=== PATIENT | female | born 1945 | race Caucasian/White ===

== ENCOUNTER → 2018-07-09 14:31 | Outpatient (CLI) | payer MEDICARE, SELFPAY ==
--- NOTE | 2018-07-09 | DI.MG.S_ITS ---
BILATERAL DIGITAL SCREENING MAMMOGRAM 3D/2D WITH CAD: 07/09/2018 CLINICAL: Routine screening. Comparison is made to exams dated: 06/04/2017 mammogram, 03/06/2016 mammogram, and 10/12/2014 mammogram - [facility]. There are scattered fibroglandular elements in both breasts. Current study was also evaluated with a Computer Aided Detection (CAD) system. There are mole markers on the right breast. There is a mole marker on the left breast. No significant masses, calcifications, or other findings are seen in either breast. There has been no significant interval change. IMPRESSION: NEGATIVE There is no mammographic evidence of malignancy. A 1 year screening mammogram is recommended. This exam was interpreted at Station ID: [id number]. NOTE: For mammograms, a report in lay terms will be sent to the patient. Approximately 15% of breast malignancies will not be visualized mammographically. In the management of a palpable breast mass, a negative mammogram must not discourage biopsy of a clinically suspicious lesion. Electronically Signed By: Vik foster/adriana:07/09/2018 20:42:39 letter sent: Normal Exam ACR BI-RADS Category 1: Negative 3341F
== END ==
PROVIDERS: PCP Family Medicine; Visit Provider Nurse Practitioner Family
DX: Z12.31 Encounter for screening mammogram for malignant neoplasm of breast (principal)
CPT/HCPCS: 77063; 77067

== ENCOUNTER 2019-06-23 08:41 | Day surgery (SDC) | payer MEDICARE, OTHER, SELFPAY ==
--- NOTE | 2019-06-23 | PATH_ITS ---
[facility] Accession Number: [id number] . 01 Material submitted: . colon - POLYPS ASCENDING COLON . 02 Diagnosis: Ascending Colon, Polyps: Fragments of tubular adenoma. V 06/24/2019 1012 Local . 02 Electronically signed: . Neal Toribio MD, PhD, Pathologist NPI- [id number] . 01 Gross description: . POLYPS ASCENDING COLON: Received in formalin are 3 fragment(s) of mariscal, soft tissue measuring 0.1 x 0.1 x 0.1 cm to 0.3 x 0.3 x 0.2 cm submitted entirely in 1 cassette(s) [place] [place]23[place] 1841 Local . 02 Pathologist provided ICD-10: D12.2 . 02 CPT . 710497 Performed at: 01 [facility] [address] [id number] MD Alin Malcolm MD Phone: [phone] Performed at: [address] [facility] [address] [place], [place] [id number] MD Erin Meyer MD Phone: [phone]
[2019-06-23] MEDS: SODIUM CHLORIDE 0.9% 1,000 ML 200 ML IV (09:04)
[2019-06-23 09:17] VITALS: BP 122/65; PULSE 64; RESP 14; TEMP 36.7; O2SAT 98; BMI 26.4
--- NOTE | 2019-06-23 09:53 | PM.HP.1 ---
History of Present Illness History of Present Illness Date Patient Seen: 06/23/19 Time Patient Seen: 09:53 Chief complaint: [id number] SCREENING COLONOSCOPY Narrative: The patient is a woman who had a last colonoscopy 5 years ago. She has had polyps removed in the past. No family history of colon cancer. Patient History Medical History (Updated 06/23/19 @ 09:53 by Isaak Obrien MD) Acquired hypothyroidism (02/02/15) Essential hypertension (02/02/15) Surgical History History of tonsillectomy Status post dilation and curettage Status post surgery (11/12/12) Family & Social History Family History Brother Diabetes mellitus Father Heart disease Social History: household members spouse Tobacco & Substance use: Smoking Status Never smoker alcohol intake current alcohol intake frequency a few times a week Substance Use Type does not use Meds Home Medications and Allergies Home Medications Medication Instructions Recorded Confirmed Type CHOLECALCIFEROL (VITAMIN D3) 2,000 iu PO Q DAY #0 10/07/10 History (Vitamin D) MULTIVITAMIN (Multiple Vitamins 1 tab PO Q DAY #0 10/09/10 History Daily) glucosamine sulfate [Genicin] 1,000 mg PO QDAY #0 11/22/15 History Fish Oil 3,000 mg PO QDAY #0 02/06/16 History Sodium Fluoride 5000 Plus 0.11 #0 07/15/16 History atenolol 25 mg PO BID #180 tab 07/15/16 06/23/19 Rx levothyroxine [Synthroid] 75 mcg PO QAM #90 tab 07/15/16 06/23/19 Rx atorvastatin [Lipitor] 20 mg PO HS #90 tab 10/27/16 06/23/19 Rx Allergies Allergy/AdvReac Type Severity Reaction Status Date / Time aspirin [ASPIRIN] Allergy Mild ACID Verified 06/23/19 09:05 REFLUX TO JAWLINE Review of Systems Review of Systems ROS: Yes All systems reviewed with the patient and are negative except as otherwise documented Cardiovascular Comments: History of hypertension on medication Exam Vital Signs (past 8 hours): - 06/23/19 09:17 Temperature 98.1 F Pulse Rate 64 Respiratory Rate 14 Blood Pressure 122/65 Pulse Oximetry 98 Oxygen Delivery Method Room Air Narrative Exam Narrative: Pleasant cooperative patient no apparent distress. Lungs are clear to auscultation. No rales or rhonchi. Heart regular rate and rhythm no murmur gallop. Abdomen is soft nontender without mass. No obvious hernias. Patient is alert and oriented x3. Assessment & Plan Assessment & Plan narrative: The patient for a screening colonoscopy. I have discussed the procedure with them. Risks of bleeding, perforation which would necessitate major operation, failure to find remove all lesions, the potential tattoo were all discussed. All questions were answered. They wished to proceed.
--- NOTE | 2019-06-23 09:54 | PM.PREOP ---
Pre-operative Note Interval Note History & Physical reviewed/Exam performed by Physician: Yes Changes to H&P: No ASA Class (for procedural sedation): II
[2019-06-23] MEDS: fentaNYL 250 MCG/5 ML INJ IV (09:57)
[2019-06-23] MEDS: MIDAZOLAM 5 MG/5 ML VIAL IV (09:57)
--- NOTE | 2019-06-23 10:16 | SUR.OPER ---
GLASSES IN LABELED BAG TO PACU WITH PATIENT.
[2019-06-23 10:26] VITALS: BP 106/47; PULSE 66; RESP 16; TEMP 36.2; O2SAT 99
--- NOTE | 2019-06-23 10:28 | PM.OP.ENDO ---
Operative Date/Time/Diagnoses Date of procedure: 06/23/19 Time of procedure: 10:28 Pre-op diagnosis: Screening examination. Personal History of polyps. Last colonoscopy 5 years ago. Post-op diagnosis: same (Small polyp in ascending colon. Sigmoid diverticulosis.) Procedure & Clinicians Study performed: Colonoscopy with cold biopsy Same procedure as scheduled: Yes Indications: Screening Surgeon: Isaak Obrien Procedure Notes SCOAP/Timeout: Perform Procedure in detail: The patient was placed in the left lateral decubitus position and underwent IV sedation directed by the surgeon consisting of fentanyl and Versed. Digital exam was normal. The scope was inserted and advanced through the rectum into the sigmoid, descending, transverse, and ascending colon. Diverticulosis was noted in the sigmoid colon. The cecum was reached identified by the ileocecal valve and the appendiceal opening. The ileocecal valve was successfully cannulated. The terminal ileum was normal in appearance. The scope was gradually brought out. A small Polyp was found in the ascending colon. It was biopsied and removed.. The scope ultimately was retroflexed in the rectum. The appearance was normal except for some minor scarring on old hemorrhoidal disease. There was no active inflammation or ulceration.. The scope was removed and the patient tolerated the procedure well. Prep was very good. Scope withdrawal time: 8 minutes Sedation minutes: 21 Findings: diverticulosis and polyp (One small) Specimen(s): other (Polyp) Complications: none Post-procedure Recommendations: Colonscopy in 5 years Follow up: as needed Disposition: PACU
[2019-06-23 10:31] VITALS: BP 110/34; PULSE 59; RESP 15; O2SAT 97
[2019-06-23 10:36] VITALS: BP 108/42; PULSE 55; RESP 12; O2SAT 99
[2019-06-23 10:41] VITALS: BP 137/45; PULSE 61; RESP 13; TEMP 36.4; O2SAT 99
[2019-06-23 10:48] VITALS: BP 118/52; PULSE 59; RESP 16; TEMP 36.6; O2SAT 59
== END 2019-06-23 11:00 | disposition home or self-care (01) ==
PROVIDERS: PCP Family Medicine; Referring Provider Family Medicine; Visit Provider Specialist
PROC: 0DJD8ZZ Inspection of Lower Intestinal Tract, Via Natural or Artificial Opening Endoscopic (ICD-10-PCS; CPT 45378; principal; 2019-06-23 09:45)
DX: Z12.11 Encounter for screening for malignant neoplasm of colon (principal); Z86.010 Personal history of colon polyps; D12.2 Benign neoplasm of ascending colon
CPT/HCPCS: 45380; 99152; J2250; J3010

== ENCOUNTER → 2020-07-24 10:13 | Outpatient (CLI) | payer MEDICARE, OTHER, SELFPAY ==
--- NOTE | 2020-07-24 | DI.MG.S_ITS ---
BILATERAL DIGITAL SCREENING MAMMOGRAM 3D/2D WITH CAD: 07/24/2020 CLINICAL: Routine screening. Comparison is made to exams dated: 07/09/2018 mammogram, 06/04/2017 mammogram, and 03/06/2016 mammogram - [facility]. There are scattered fibroglandular elements in both breasts. Current study was also evaluated with a Computer Aided Detection (CAD) system. There are new grouped fine calcifications in the left breast at 12 o'clock middle depth. No other significant masses, calcifications, or other findings are seen in either breast. IMPRESSION: INCOMPLETE: NEEDS ADDITIONAL IMAGING EVALUATION The new grouped fine calcifications in the left breast are indeterminate. Mediolateral and spot magnification views as well as a diagnostic mammogram are recommended. This exam was interpreted at Station ID: [id number]. NOTE: For mammograms, a report in lay terms will be sent to the patient. Approximately 15% of breast malignancies will not be visualized mammographically. In the management of a palpable breast mass, a negative mammogram must not discourage biopsy of a clinically suspicious lesion. Electronically Signed By: Alin downs/adriana:07/24/2020 11:23:07 letter sent: Additional Imaging Needed ACR BI-RADS Category 0: Incomplete 3340F
== END ==
PROVIDERS: PCP Nurse Practitioner Family; Referring Provider Family Medicine; Visit Provider Family Medicine
DX: Z12.31 Encounter for screening mammogram for malignant neoplasm of breast (principal); R92.1 Mammographic calcification found on diagnostic imaging of breast
CPT/HCPCS: 77063; 77067

== ENCOUNTER → 2020-08-15 11:48 | Outpatient (CLI) | payer MEDICARE, OTHER, SELFPAY ==
--- NOTE | 2020-08-15 | DI.MG.S_ITS ---
UNILATERAL LEFT DIGITAL DIAGNOSTIC MAMMOGRAM 3D/2D WITH ADDITIONAL VIEWS: 08/15/2020 CLINICAL: Additional evaluation requested from prior study. Comparison is made to exams dated: 07/24/2020 mammogram, 07/09/2018 mammogram, and 06/04/2017 mammogram - [facility]. There are scattered fibroglandular elements in left breast. There are a few new, scattered punctate calcifications in the left breast at 12 o'clock anterior depth. No other significant masses or calcifications are seen in the breast. IMPRESSION: PROBABLY BENIGN The new calcifications in the left breast are probably benign. A follow-up left mammogram in 6 months is recommended to demonstrate stability. Findings and recommendations were conveyed to the patient at time of exam. This exam was interpreted at Station ID: [id number]. NOTE: For mammograms, a report in lay terms will be sent to the patient. Approximately 15% of breast malignancies will not be visualized mammographically. In the management of a palpable breast mass, a negative mammogram must not discourage biopsy of a clinically suspicious lesion. Electronically Signed By: Jumana lui/:08/15/2020 13:00:40 letter sent: Followup Recommended ACR BI-RADS Category 3: Probably benign 3343F
== END ==
PROVIDERS: PCP Nurse Practitioner Family; Referring Provider Nurse Practitioner Family; Visit Provider Family Medicine
DX: R92.8 Other abnormal and inconclusive findings on diagnostic imaging of breast (principal)
CPT/HCPCS: 77065; G0279

== ENCOUNTER → 2021-02-13 13:15 | Outpatient (CLI) | payer MEDICARE, OTHER, SELFPAY ==
--- NOTE | 2021-02-13 | DI.MG.S_ITS ---
UNILATERAL LEFT DIGITAL DIAGNOSTIC MAMMOGRAM 3D/2D SHORT-TERM FOLLOW-UP: 02/13/2021 CLINICAL: Short term follow up for the left breast. Comparison is made to exams dated: 08/15/2020 mammogram, 07/24/2020 mammogram, 07/09/2018 mammogram, and 06/04/2017 mammogram - [facility]. There are scattered fibroglandular elements in left breast. There are diffuse punctate calcifications in the left breast at 12 o'clock anterior depth. These are not significantly changed. No other significant masses or calcifications are seen in the breast. IMPRESSION: PROBABLY BENIGN The diffuse punctate calcifications in the left breast are probably benign. A follow-up mammogram in 6 months is recommended to demonstrate stability. Patient will be due for right breast mammogram at that time. This exam was interpreted at Station ID: [id number]. NOTE: For mammograms, a report in lay terms will be sent to the patient. Approximately 15% of breast malignancies will not be visualized mammographically. In the management of a palpable breast mass, a negative mammogram must not discourage biopsy of a clinically suspicious lesion. Electronically Signed By: David Bradford M.D. slc/:02/13/2021 13:55:04 letter sent: Followup Recommended ACR BI-RADS Category 3: Probably benign 3343F
== END ==
PROVIDERS: PCP Nurse Practitioner Family; Referring Provider Nurse Practitioner Family; Visit Provider Nurse Practitioner Family
DX: R92.8 Other abnormal and inconclusive findings on diagnostic imaging of breast (principal); R92.1 Mammographic calcification found on diagnostic imaging of breast
CPT/HCPCS: 77065; G0279

== ENCOUNTER → 2021-08-06 09:19 | Outpatient (CLI) | payer MEDICARE, OTHER, SELFPAY ==
--- NOTE | 2021-08-06 09:21 | DI.MG.S_ITS ---
BILATERAL DIGITAL DIAGNOSTIC MAMMOGRAM 3D/2D SHORT-TERM FOLLOW-UP: 08/06/2021 CLINICAL: Short term follow up of the left breast, due for bilateral imaging. Comparison is made to exams dated: 02/13/2021 mammogram, 08/15/2020 mammogram, and 07/24/2020 mammogram - [facility]. There are scattered fibroglandular elements in both breasts. There are diffuse fine punctate calcifications in the left breast upper inner quadrant. These are not significantly changed. No other significant masses, calcifications, or other findings are seen in either breast. IMPRESSION: PROBABLY BENIGN The diffuse fine punctate calcifications in the left breast are probably benign. A follow-up mammogram in 12 months is recommended to demonstrate 2 year stability. This exam was interpreted at Station ID: [id number]. NOTE: For mammograms, a report in lay terms will be sent to the patient. Approximately 15% of breast malignancies will not be visualized mammographically. In the management of a palpable breast mass, a negative mammogram must not discourage biopsy of a clinically suspicious lesion. Electronically Signed By: Alin downs/:08/06/2021 10:14:01 letter sent: Followup Recommended ACR BI-RADS Category 3: Probably benign 3343F
== END ==
PROVIDERS: PCP Nurse Practitioner Family; Referring Provider Nurse Practitioner Family; Visit Provider Nurse Practitioner Family
DX: R92.8 Other abnormal and inconclusive findings on diagnostic imaging of breast (principal); R92.1 Mammographic calcification found on diagnostic imaging of breast
CPT/HCPCS: 77066; G0279

== ENCOUNTER → 2022-08-07 11:46 | Outpatient (CLI) | payer MEDICARE, OTHER, SELFPAY ==
--- NOTE | 2022-08-07 | DI.MG.S_ITS ---
BILATERAL DIGITAL DIAGNOSTIC MAMMOGRAM 3D/2D: 08/07/2022 CLINICAL: Short term follow up of the left breast, due for bilateral imaging. Comparison is made to exams dated: 08/06/2021 mammogram, 02/13/2021 mammogram, 08/15/2020 mammogram, 07/24/2020 mammogram, and 07/09/2018 mammogram - [facility]. There are scattered areas of fibroglandular density in both breasts (category b / 25%-50% glandular tissue). There are stable benign diffuse fine punctate calcifications in the left breast at 10 o'clock middle depth. No other significant masses, calcifications, or other findings are seen in either breast. IMPRESSION: BENIGN There is no mammographic evidence of malignancy. Left breast calcifications demonstrate long-term stability. A 1 year screening mammogram is recommended. Exam findings were conveyed to the patient. Based on the Tyrer Cuzick model (a risk assessment model) the patient's lifetime risk is 2.3% and her 10 year risk is 0.0%. According to the ACR, ACS, and NCCN guidelines, an annual breast MRI exam along with mammogram is recommended if the patient's lifetime risk is 20% or greater. This exam was interpreted at Station ID: [id number]. NOTE: For mammograms, a report in lay terms will be sent to the patient. Approximately 15% of breast malignancies will not be visualized mammographically. In the management of a palpable breast mass, a negative mammogram must not discourage biopsy of a clinically suspicious lesion. Electronically Signed By: David Bradford M.D. [facility] [place]:08/07/2022 12:23:20 letter sent: Normal Exam ACR BI-RADS Category 2: Benign Finding(s) 3342F
== END ==
PROVIDERS: PCP Nurse Practitioner Family; Referring Provider Nurse Practitioner Family; Visit Provider Nurse Practitioner Family
DX: R92.8 Other abnormal and inconclusive findings on diagnostic imaging of breast (principal); R92.1 Mammographic calcification found on diagnostic imaging of breast
CPT/HCPCS: 77066; G0279

== ENCOUNTER → 2023-08-20 10:44 | Outpatient (CLI) | payer MEDICARE, OTHER, SELFPAY ==
--- NOTE | 2023-08-20 | DI.MG.S_ITS ---
BILATERAL DIGITAL SCREENING MAMMOGRAM 3D/2D WITH CAD: 08/20/2023 CLINICAL: Routine screening. Comparison is made to exams dated: 08/07/2022 mammogram, 08/06/2021 mammogram, and 07/24/2020 mammogram - [facility]. There are scattered areas of fibroglandular density in both breasts (category b / 25%-50% glandular tissue). Current study was also evaluated with a Computer Aided Detection (CAD) system. No significant masses, calcifications, or other findings are seen in either breast. There has been no significant interval change. IMPRESSION: NEGATIVE There is no mammographic evidence of malignancy. A 1 year screening mammogram is recommended. Based on the Tyrer Cuzick model (a risk assessment model) the patient's lifetime risk is 1.9% and her 10 year risk is 0.0%. According to the ACR, ACS, and NCCN guidelines, an annual breast MRI exam along with mammogram is recommended if the patient's lifetime risk is 20% or greater. This exam was interpreted at Station ID: [id number]. NOTE: For mammograms, a report in lay terms will be sent to the patient. Approximately 15% of breast malignancies will not be visualized mammographically. In the management of a palpable breast mass, a negative mammogram must not discourage biopsy of a clinically suspicious lesion. Electronically Signed By: Derrick ballard/adriana:08/20/2023 12:19:09 letter sent: Normal Exam ACR BI-RADS Category 1: Negative 3341F
== END ==
PROVIDERS: PCP Family Medicine; Referring Provider Family Medicine; Visit Provider Family Medicine
DX: Z12.31 Encounter for screening mammogram for malignant neoplasm of breast (principal); R92.323 Mammographic fibroglandular density, bilateral breasts
CPT/HCPCS: 77063; 77067

== ENCOUNTER → 2024-09-02 10:57 | Outpatient (CLI) | payer MEDICARE, OTHER, SELFPAY ==
--- NOTE | 2024-09-02 11:00 | DI.MG.S_ITS ---
MM screening mammo BI: 09/02/2024. BI-RADS: 1 CLINICAL: 79-year old female for bilateral screening mammogram. Tyrer-Cuzick lifetime risk of 0.5%. No personal or first-degree family history of breast cancer. PRIOR EXAMS 08/20/2023, 08/07/2022, 08/06/2021, 02/13/2021, 08/15/2020, 07/24/2020, 07/09/2018, 06/04/2017, 03/06/2016, 10/12/2014. MAMMOGRAPHY TECHNIQUE: 2D and 3D (tomosynthesis) digital mammographic views obtained, with additional images as needed for full coverage. Current study was also evaluated with a Computer Aided Detection (CAD) system. DENSITY B. There are scattered areas of fibroglandular density. MAMMOGRAPHY FINDINGS Bilateral: No suspicious mass, asymmetry, microcalcification, or other abnormality seen. IMPRESSION: * No evidence of malignancy. RECOMMENDATIONS Bilateral * Annual screening mammography. OVERALL ASSESSMENT CATEGORY BI-RADS-1: Negative. The [employer] recommends annual screening mammography beginning at age 40 for women with average risk of breast cancer. ELECTRONICALLY SIGNED: Chandrika Saucedo M.D. on 09/05/2024 at 12:57:13 AM PT Interpreting Station ID: [id number]
== END ==
PROVIDERS: PCP Family Medicine; Referring Provider Family Medicine; Visit Provider Family Medicine
DX: Z12.31 Encounter for screening mammogram for malignant neoplasm of breast (principal)
CPT/HCPCS: 77063; 77067